=== PATIENT | female | born 1985 | race Caucasian/White ===

== ENCOUNTER 2016-08-10 07:17 | Emergency (ER) | payer MEDICARE, MEDICAID ==
--- NOTE | 2016-08-10 08:36 | EDM.PDOC ---
ED HPI GENERAL MEDICAL PROBLEM - General Chief Complaint: Abdominal Pain Stated Complaint: PAIN IN MIDDLE OF CHEST Time Seen by Provider: 08/10/16 08:27 Source of Information: Reports: Patient, RN Notes Reviewed History Limitations: Reports: No Limitations - History of Present Illness INITIAL COMMENTS - FREE TEXT/NARRATIVE: 31-year-old female presents emergency department day complaint of epigastric abdominal pain, she states the pain came on early this morning is constant nature pain goes through to her back she has no nausea vomiting no shortness of breath or chest pain she had pain similar to this a while back after she ate greasy food denies any flatus Epigastric Pain Score (Numeric/FACES): 10 - Related Data Allergies Allergy/AdvReac Type Severity Reaction Status Date / Time ibuprofen Allergy Rash Verified 08/10/16 08:02 Penicillins Allergy Rash Verified 08/10/16 08:02 Home Meds: Home Meds Sertraline HCl 50 mg PO BEDTIME 06/05/15 [History] metFORMIN [Glucophage XR] 500 mg PO BIDMEALS 08/10/16 [History] Past Medical History HEENT History: Reports: Other (See Below) Other HEENT History: 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: Musculoskeletal History: Reports: Arthritis Neurological History: Reports: Concussion Psychiatric History: Reports: Depression Endocrine/Metabolic History: Reports: Diabetes, Type II, Obesity/BMI 30+ - Past Surgical History Female Surgical History: Reports: Hysterectomy, Tubal Ligation Social & Family History - Family History Family Medical History: Unobtainable - Tobacco Use Smoking Status *Q: Current Some Day Smoker Years of Tobacco use: 3 Packs/Tins Daily: 0.5 Second Hand Smoke Exposure: No - Caffeine Use Caffeine Use: Reports: None - Alcohol Use Days Per Week of Alcohol Use: 0 - Recreational Drug Use Recreational Drug Use: No ED ROS GENERAL - Review of Systems Review Of Systems: See Below Constitutional: Denies: Fever, Chills HEENT: Reports: No Symptoms Respiratory: Reports: No Symptoms Cardiovascular: Reports: No Symptoms GI/Abdominal: Reports: Abdominal Pain. Denies: Constipation, Diarrhea, Flatus, Nausea, Vomiting : Reports: No Symptoms Musculoskeletal: Reports: No Symptoms Skin: Reports: No Symptoms Neurological: Reports: No Symptoms ED EXAM, GI/ABD - Physical Exam Exam: See Below Text/Narrative:: General: Obese female, in mild discomfort secondary to pain, alert and oriented x3 HEENT: head is atraumatic normocephalic, eyes pupils equal round reactive to light, sclera clear no conjunctivitis appreciated. Ears tympanic membranes clear and trejo landmarks and light reflex are present bilaterally canals are clear. Nose no septal deviation, nares are clear, no blood present. Mouth mucosa is moist and pink no erythema or exudate noted in soft palate, tongue is midline uvula is midline, dentition is intact. Neck: Supple no thyromegaly no tracheal deviation. Nodes: Cervical nodes subclavicular nodes nontender no palpable lymphadenopathy noted. Lungs: clear to auscultation bilaterally with symmetrical respirations, no adventitious noise appreciated. CV: Regular rate and rhythm S1 and S2 appreciated no murmurs rubs or gallops noted. Abdomen: Soft, tender epigastric region, obese difficult to assess, no palpable masses or organomegaly appreciated, no distention no guarding bowel sounds are present, . Neuro: Cranial nerves II through XII grossly intact Skin: Warm and dry, intact Extremities: No lower extremity edema appreciated, pedal pulse is +2. Course - Vital Signs Last Recorded V/S: Last Vital Signs Temp 98.3 F 08/10/16 09:54 Pulse 72 08/10/16 09:54 Resp 14 08/10/16 09:54 BP 154/103 H 08/10/16 09:54 Pulse Ox 96 08/10/16 09:54 - Orders/Labs/Meds Orders: Active Orders 24 hr Category Date Time Status Abdomen Pelvis w Cont [CT] Urgent Exams 08/10/16 08:32 Taken Iopamidol [Isovue-300 (61%)] Med 08/10/16 09:02 Active 150 ml IV . DIRECTED PRN Sodium Chloride 0.9% [Normal Saline] 85 ml Med 08/10/16 09:15 Active IV ASDIRECTED Sodium Chloride 0.9% [Saline Flush] Med 08/10/16 09:02 Active 10 ml FLUSH ONETIME PRN Medication Orders Sodium Chloride (Normal Saline) 85 mls @ 3.5 mls/sec IV ASDIRECTED LISA Stop: 08/10/16 23:00 Last Admin: 08/10/16 09:18 Dose: 3 mls/sec Iopamidol (Isovue-300 (61%)) 150 ml IV . DIRECTED PRN PRN Reason: RADIOLOGY EXAM Stop: 08/11/16 09:03 Last Admin: 08/10/16 09:18 Dose: 150 ml Sodium Chloride (Saline Flush) 10 ml FLUSH ONETIME PRN PRN Reason: per radiology protocol Stop: 08/10/16 23:00 Last Admin: 08/10/16 09:15 Dose: 10 ml Labs: Laboratory Tests 08/10/16 08/10/16 08/10/16 Range/Units 08:44 08:44 08:51 WBC 9.7 (4.5-11.0) K/uL RBC 4.68 (3.30-5.50) M/uL Hgb 13.5 (12.0-15.0) g/dL Hct 39.6 (36.0-48.0) % MCV 85 (80-98) fL MCH 29 (27-31) pg MCHC 34 (32-36) % Plt Count 333 (150-400) K/uL Neut % (Auto) 63 (36-66) % Lymph % (Auto) 23 L (24-44) % Ida % (Auto) 8 H (2-6) % Eos % (Auto) 6 H (2-4) % Baso % (Auto) 1 (0-1) % Sodium 139 L (140-148) mmol/L Potassium 4.2 (3.6-5.2) mmol/L Chloride 105 (100-108) mmol/L Carbon Dioxide 27 (21-32) mmol/L Anion Gap 11.2 (5.0-14.0) mmol/L BUN 10 (7-18) mg/dL Creatinine 0.7 (0.6-1.0) mg/dL Est Cr Clr Drug Dosing 108.01 mL/min Estimated GFR (MDRD) > 60 (>60) Glucose 99 (74-106) mg/dL Calcium 8.6 (8.5-10.1) mg/dL Total Bilirubin 0.2 (0.2-1.0) mg/dL AST 12 L (15-37) U/L ALT 15 (12-78) U/L Alkaline Phosphatase 98 (46-116) U/L Troponin I < 0.017 (0.000-0.056) ng/mL Total Protein 7.4 (6.4-8.2) g/dL Albumin 3.3 L (3.4-5.0) g/dL Globulin 4.1 H (2.3-3.5) g/dL Albumin/Globulin Ratio 0.8 L (1.2-2.2) Lipase 118 (73-393) U/L Urine Color Urine Appearance Urine pH (4.5-8.0) Ur Specific Cleves (1.008-1.030) Urine Protein (NEGATIVE) mg/dL Urine Glucose (UA) (NEGATIVE) mg/dL Urine Ketones (NEGATIVE) mg/dL Urine Occult Blood (NEGATIVE) Urine Nitrite (NEGATIVE) Urine Bilirubin (NEGATIVE) Urine Urobilinogen (NORMAL) mg/dL Ur Leukocyte Esterase (NEGATIVE) Urine RBC (0-5) Urine WBC (0-5) Ur Epithelial Cells Amorphous Sediment Urine Bacteria Urine Mucus Urine HCG, Qual Negative 08/10/16 Range/Units 08:51 WBC (4.5-11.0) K/uL RBC (3.30-5.50) M/uL Hgb (12.0-15.0) g/dL Hct (36.0-48.0) % MCV (80-98) fL MCH (27-31) pg MCHC (32-36) % Plt Count (150-400) K/uL Neut % (Auto) (36-66) % Lymph % (Auto) (24-44) % Ida % (Auto) (2-6) % Eos % (Auto) (2-4) % Baso % (Auto) (0-1) % Sodium (140-148) mmol/L Potassium (3.6-5.2) mmol/L Chloride (100-108) mmol/L Carbon Dioxide (21-32) mmol/L Anion Gap (5.0-14.0) mmol/L BUN (7-18) mg/dL Creatinine (0.6-1.0) mg/dL Est Cr Clr Drug Dosing mL/min Estimated GFR (MDRD) (>60) Glucose (74-106) mg/dL Calcium (8.5-10.1) mg/dL Total Bilirubin (0.2-1.0) mg/dL AST (15-37) U/L ALT (12-78) U/L Alkaline Phosphatase (46-116) U/L Troponin I (0.000-0.056) ng/mL Total Protein (6.4-8.2) g/dL Albumin (3.4-5.0) g/dL Globulin (2.3-3.5) g/dL Albumin/Globulin Ratio (1.2-2.2) Lipase (73-393) U/L Urine Color Yellow Urine Appearance Slightly cloudy Urine pH 5.0 (4.5-8.0) Ur Specific Cleves 1.025 (1.008-1.030) Urine Protein Negative (NEGATIVE) mg/dL Urine Glucose (UA) Normal (NEGATIVE) mg/dL Urine Ketones Negative (NEGATIVE) mg/dL Urine Occult Blood Negative (NEGATIVE) Urine Nitrite Negative (NEGATIVE) Urine Bilirubin Negative (NEGATIVE) Urine Urobilinogen Normal (NORMAL) mg/dL Ur Leukocyte Esterase Negative (NEGATIVE) Urine RBC 0-5 (0-5) Urine WBC 0-5 (0-5) Ur Epithelial Cells Many Amorphous Sediment Rare Urine Bacteria Few Urine Mucus Few Urine HCG, Qual Meds: Medications Generic Name Dose Route Start Last Admin Trade Name Freq PRN Reason Stop Dose Admin Sodium Chloride 85 mls @ 3.5 mls/sec 08/10/16 09:15 08/10/16 09:18 Normal Saline IV 08/10/16 23:00 3 mls/sec ASDIRECTED LISA Administration Iopamidol 150 ml 08/10/16 09:02 08/10/16 09:18 Isovue-300 (61%) IV 08/11/16 09:03 150 ml . DIRECTED PRN Administration RADIOLOGY EXAM Sodium Chloride 10 ml 08/10/16 09:02 08/10/16 09:15 Saline Flush FLUSH 08/10/16 23:00 10 ml ONETIME PRN Administration per radiology protocol Departure - Departure Time of Disposition: 09:59 Disposition: Home, Self-Care 01 Condition: Good Clinical Impression: Cholelithiasis Qualifiers: Cholelithiasis location: gallbladder Cholecystitis presence: without cholecystitis Biliary obstruction: without biliary obstruction Qualified Code(s) : K80.20 - Calculus of gallbladder without cholecystitis without obstruction - Discharge Information Forms: ED Department Discharge Additional Instructions: Use hydrocodone as needed for pain control, please follow-up with Dr. Dion Ellis general surgery tomorrow morning at 10 AM at the clinic - My Orders Last 24 Hours: My Active Orders 08/10/16 08:32 Abdomen Pelvis w Cont [CT] Urgent 08/10/16 09:02 Iopamidol [Isovue-300 (61%)] 150 ml IV . DIRECTED PRN Sodium Chloride 0.9% [Saline Flush] 10 ml FLUSH ONETIME PRN 08/10/16 09:15 Sodium Chloride 0.9% [Normal Saline] 85 ml IV ASDIRECTED - Assessment/Plan Last 24 Hours: My Active Orders 08/10/16 08:32 Abdomen Pelvis w Cont [CT] Urgent 08/10/16 09:02 Iopamidol [Isovue-300 (61%)] 150 ml IV . DIRECTED PRN Sodium Chloride 0.9% [Saline Flush] 10 ml FLUSH ONETIME PRN 08/10/16 09:15 Sodium Chloride 0.9% [Normal Saline] 85 ml IV ASDIRECTED Plan: Assessment Acuity = acute Site and laterality = cholelithiasis comp. Patient with morbid obesity Etiology = unclear etiology Manifestations = abdominal pain Location of injury = Home Lab values = CBC normal sodium low at 139 consistent hyponatremia albumin low at 2.[address] scan shows sludge and stones in the gallbladder Plan I did review the case with Dr. Dion Ellis general surgery he will see her tomorrow morning at 10 AM to discuss the possibility of cholecystectomy, she is provided 10 hydrocodone for pain control Patient was in agreement with the plan all questions were answered, they were instructed to return to the emergency department or call for worsening symptoms. This note was dictated using [employer] voice recognition software please call with any questions.
[2016-08-10] MEDS ORDERED: Iopamidol 612 MG/ML 150 ML Bottle IV PRN (09:02)
[2016-08-10] MEDS ORDERED: Sodium Chloride 0.9% 10 ML Syringe FLUSH PRN (09:02)
[2016-08-10 09:55] VITALS: BP 154/103
== END 2016-08-10 10:12 | disposition home or self-care (01) ==
LOC: JP.ED 07:17
DX: K80.20 Calculus of gallbladder without cholecystitis without obstruction (principal); Z90.710 Acquired absence of both cervix and uterus; N83.02 Follicular cyst of left ovary; E11.9 Type 2 diabetes mellitus without complications; Z79.84 Long term (current) use of oral hypoglycemic drugs; M19.90 Unspecified osteoarthritis, unspecified site; E66.9 Obesity, unspecified; Z98.51 Tubal ligation status; F17.210 Nicotine dependence, cigarettes, uncomplicated; Z79.899 Other long term (current) drug therapy; Z88.6 Allergy status to analgesic agent; Z88.0 Allergy status to penicillin
CPT/HCPCS: 36415; 74177; 80053; 81001; 81025; 83690; 84484; 85025; J7030; J7050; 99283; 99284-25

== ENCOUNTER 2016-08-12 07:10 | Day surgery (SDC) | payer MEDICARE, MEDICAID ==
[~2016-08-12 07:10] MED LIST: Bupivacaine 0.5%/EPINEPHrine 1:200,000 50 ML MDV ONE
[2016-08-12] MEDS: Dextrose 5%-Lactated Ringers 1,000 ML IV SCH ×2 (08:12→15:09)
[2016-08-12] MEDS ORDERED: Propofol 200 MG/20 ML SDV ONE (09:38)
[2016-08-12] MEDS ORDERED: Ondansetron 4 MG/2 ML SDV ONE (09:38)
[2016-08-12] MEDS ORDERED: Succinylcholine/Normal Saline 200 MG/10 ML Syringe ONE (09:38)
[2016-08-12] MEDS ORDERED: Dexamethasone 4 MG/ML SDV ONE (09:38)
[2016-08-12] MEDS ORDERED: Rocuronium 50 MG/5 ML Vial ONE (09:38)
[2016-08-12] MEDS ORDERED: Neostigmine Methylsulfate 1 MG/ML 5 ML Syringe ONE (09:38)
[2016-08-12] MEDS ORDERED: fentaNYL 250 MCG/5 ML SDV ONE ×2 (09:39→11:05)
[2016-08-12] MEDS ORDERED: HYDROmorphone/Normal Saline 15 MG/30 ML PCA IV PRN (10:07)
[2016-08-12] MEDS ORDERED: Naloxone 0.4 MG/ML SDV IV PRN (10:11)
[2016-08-12] MEDS ORDERED: Lactated Ringers 1,000 ML ONE (11:03)
[2016-08-12] MEDS: cefOXitin 2 GM in Sodium Chloride 0.9% 50 ML IV ONE ×2 (11:13→15:56)
[2016-08-12] MEDS ORDERED: hydrOXYzine HCl 50 MG/ML SDV IM ONE (12:21)
[2016-08-12] MEDS ORDERED: Insulin Aspart 100 Units/ML 3 ML Pen SUBCUT PRN (13:14)
[2016-08-12] MEDS ORDERED: Glucose Gel 15 GM in 37.5 GM Tube PO PRN (13:14)
[2016-08-12] MEDS ORDERED: 50% Dextrose in Water 50 ML Syringe IVPUSH PRN (13:14)
[2016-08-12] MEDS ORDERED: Glucagon,Human Recombinant 1 MG Vial IM PRN (13:14)
[2016-08-12] MEDS ORDERED: Ondansetron 4 MG/2 ML SDV IVPUSH PRN (14:00)
[2016-08-12] MEDS ORDERED: Pantoprazole 40 MG Vial IVPUSH SCH (15:00)
[2016-08-12] MEDS: cefOXitin 2 GM in Sodium Chloride 0.9% 50 ML IV SCH ×2 (17:59→22:28)
[2016-08-12] MEDS: metFORMIN 500 MG Tab PO SCH (17:59)
[2016-08-12] MEDS: Acetaminophen/HYDROcodone 325-5 MG Tab PO PRN (18:04)
[2016-08-12] MEDS ORDERED: Sertraline 50 MG Tab PO SCH (21:00)
[2016-08-13] MEDS ORDERED: Benzocaine/Cetylpyridinium/Menthol Lozenge MUCMEM PRN (02:13)
[2016-08-13] MEDS: Dextrose 5%-Lactated Ringers 1,000 ML IV SCH (02:26)
[2016-08-13 02:49] VITALS: BP 134/71
[2016-08-13] MEDS: cefOXitin 2 GM in Sodium Chloride 0.9% 50 ML IV SCH (04:22)
[2016-08-13] MEDS: metFORMIN 500 MG Tab PO SCH (07:23)
--- NOTE | 2016-08-13 08:51 | DISCH ---
ADMISSION DIAGNOSES: Acute cholecystitis, cholelithiasis, degenerative arthritis of left ankle, morbid obesity, and depression. DISCHARGE DIAGNOSES: Status post laparoscopic cholecystectomy for chronic cholecystitis and cholelithiasis. HISTORY: Susan Ramirez is a 31-year-old female with right upper quadrant pain. After preoperative evaluation and discussion of possible risks and possible complications, she wished to proceed with surgical procedure. HOSPITAL COURSE: Susan had her surgery on 08/12/2016. She had no operative complications, and she was able to be discharged on 08/13/2016. PHYSICAL EXAMINATION: GENERAL: Susan Ramirez is a 31-year-old female. VITAL SIGNS: Height is 5 feet 6 inches. Weight is 308 pounds. TPR is 98.3, 63, 18, and blood pressure is 134/71. HEENT: Negative. NECK: Supple. HEART: Regular rate and rhythm. LUNGS: Clear. ABDOMEN: Dressings dry and intact. JACLYN drain is intact. This will be removed prior to discharge. Abdominal binder has been on. EXTREMITIES: Without peripheral edema. DISPOSITION: Discharged to home. CONDITION: Stable and improving. FOLLOWUP: Followup appointment with Soraya Jara PA-C, on 08/19/2016 at 10 a.m. DISCHARGE MEDICATIONS: Home medications are [place] 5/325 mg 1 to 2 every 4 hours p.r.n. pain, #50. She is to resume her home medications. DISCHARGE DIET: Usual diet as tolerated. Drink 8 to 10 glasses of water a day. ACTIVITY: Walk short distances 6 times a day. No lifting greater than 10 pounds. Driving, do not drive while on pain medication. Shower/bathing, may shower. Keep operative site clean and dry. DISCHARGE INSTRUCTIONS: Notify provider if any fever, increased pain, nausea, or vomiting. Special instruction; wear abdominal binder for 2 weeks and then as tolerated. Use incentive spirometer 10 times every hour while awake for 2 weeks.
[2016-08-13] MEDS: Acetaminophen/HYDROcodone 325-5 MG Tab PO PRN (08:55)
[2016-08-13] MEDS ORDERED: Pneumococcal Polyvalent-23 Vaccine 0.5 ML SDV IM ONE (09:00)
--- NOTE | 2016-08-18 19:20 | OR ---
DATE OF PROCEDURE: 08/12/2016 PREOPERATIVE DIAGNOSIS: Chronic cholecystitis and cholelithiasis. POSTOPERATIVE DIAGNOSIS: Chronic cholecystitis and cholelithiasis. OPERATIVE PROCEDURE: Laparoscopic cholecystectomy ([id number]). ANESTHESIA: General. HOUSE FURNISHINGS SUPERVISOR: Soraya Jara PA-C and KAYLEY Godoy student. INDICATIONS FOR PROCEDURE: This is a 31-year-old presenting with symptomatic cholelithiasis. Plan is to proceed with laparoscopic cholecystectomy. Potential risks including bleeding, infection, injury to underlying viscera, such as common bile duct, potential migration of stones into the common bile duct during the course of the procedure, and as well as possible persistent symptoms post cholecystectomy were all gone over and the patient wishes to proceed. DESCRIPTION OF PROCEDURE: The patient was taken to the operating room. After general endotracheal anesthesia was induced, the abdomen was prepped and draped. Just to the right of the umbilicus, a transverse incision was made. The peritoneal cavity was entered under direct vision with an Optiview trocar and inflated to 15 mmHg pressure of CO2. Laparoscope was reinserted. No underlying trocar insertion site injuries were seen. Following this, a 12 mm epigastric trocar was placed along with a 5 mm right abdominal trocar and the abdomen examined. The patient noted to have a distended, somewhat trejo appearing gallbladder consistent with chronic cholecystitis. There was some omental adhesions present. These were initially taken down with Harmonic scalpel. Dissection was then continued with the Harmonic scalpel down the gallbladder neck and cystic duct junction. Once that area was well delineated as was the adjacent cystic artery, both structures were clipped 3 times proximally and once distally and divided. The gallbladder was then dissected off the gallbladder bed using Harmonic scalpel and delivered through the upper midline port. Examination of the gallbladder showed multiple small yellow gallstones. The area of dissection was inspected. No bleeding or bile leaks were seen. A Lukasz-Rader drain was taken out through the right lateral trocar site, placed in the area of the gallbladder bed. The trocars were then sequentially removed. The fascia at the 12-mm site was closed with 0 Vicryl stitch and the skin at each incision with a 4-0 Vicryl skin stitch. Dressing was applied. The patient was taken to the recovery room in satisfactory condition. Physician residential real estate assistant Soraya Jara played an essential role in assisting in this case, helping to position the patient, retract structures in as indicated above as well as suturing and cutting sutures when indicated. Her presence improved patient's safety and decreased operative time. Dion Ellis MD /[id number]
== END 2016-08-13 11:15 | disposition home or self-care (01) ==
LOC: JP.SDS 07:10 → JP.2SS 11:45 → JP.SDS 08-13 11:15
PROVIDERS: ATTEND Surgery
DX: K80.10 Calculus of gallbladder with chronic cholecystitis without obstruction (principal); E11.9 Type 2 diabetes mellitus without complications; Z79.84 Long term (current) use of oral hypoglycemic drugs; Z79.899 Other long term (current) drug therapy; E66.9 Obesity, unspecified; Z68.30 Body mass index [BMI] 30.0-30.9, adult; Z90.710 Acquired absence of both cervix and uterus; Z98.51 Tubal ligation status; Z88.0 Allergy status to penicillin; Z88.8 Allergy status to other drugs, medicaments and biological substances; F17.210 Nicotine dependence, cigarettes, uncomplicated; Z23 Encounter for immunization
CPT/HCPCS: 36415; 47562; 82247; 82962; 84075; 85027; 88304; 94762; A9270; C9113; G0009; J0694; J1100; J1170; J2405; J2704; J3010; J3410; J7042; J7050; J7120; 90732

== ENCOUNTER 2018-04-27 21:39 | Emergency (ER) | payer BC, MEDICARE ==
[2018-04-27 22:11] VITALS: BP 148/103
[2018-04-27] MEDS ORDERED: Ketorolac 60 MG/2 ML SDV IM ONE (23:01)
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
--- NOTE | 2018-04-27 23:27 | CRLCR ---
INDICATION: Left shoulder pain TECHNIQUE: Shoulder radiograph 3 views left COMPARISON: None FINDINGS: Bone: No acute fractures or aggressive bone lesions are identified. Joint: The glenohumeral is unremarkable. The acromioclavicular joint is unremarkable. Soft tissue: Unremarkable. The visualized hemithorax is unremarkable in appearance. No radiopaque foreign bodies are seen. IMPRESSION: 1. No acute osseous injuries or abnormalities are noted. Dictated by: Aditya Day MD @ 04/27/2018 23:25:21 (Electronically Signed)
[2018-04-27] MEDS ORDERED: Triamcinolone Acetonide 40 MG/ML 1 ML MDV INJECT ONE (23:28)
== END 2018-04-27 23:47 | disposition home or self-care (01) ==
LOC: JP.ED 21:39
DX: M75.52 Bursitis of left shoulder (principal)
CPT/HCPCS: 73030; 96372; 99283; J1885; J3301

== ENCOUNTER 2018-07-13 20:02 | Emergency (ER) | payer BC, MEDICARE ==
[2018-07-13 20:23] VITALS: BP 124/78
[2018-07-13] MEDS ORDERED: cefTRIAXone 2 GM in Sodium Chloride 0.9% 50 ML IV ONE (20:49)
[2018-07-13] MEDS ORDERED: Sodium Chloride 0.9% 1,000 ML IV SCH (21:00)
--- NOTE | 2018-07-13 21:30 | CRLCR ---
Indication: Shortness of breath with fever. Technique: PA and lateral views the chest were obtained. Comparison: None Findings: The heart is normal in size. An opacity is identified in the right upper lobe anteriorly. A repeat study is recommended to ensure complete resolution. No pleural effusion or pneumothorax is identified. The left lung is clear. Impression: Opacity identified in the right upper lobe. A repeat study is recommended to ensure complete resolution. Dictated by Reina Stephenson MD @ Jul 13 2018 9:27PM Signed by Dr. Reina Stephenson @ Jul 13 2018 9:28PM
[2018-07-13] MEDS ORDERED: Acetaminophen/HYDROcodone 325-5 MG Tab PO ONE (22:14)
[2018-07-13] MEDS ORDERED: Acetaminophen 325 MG Tab PO ONE (22:14)
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
== END 2018-07-13 22:56 | disposition home or self-care (01) ==
LOC: JP.ED 20:02
DX: J18.1 Lobar pneumonia, unspecified organism (principal); F32.9 Major depressive disorder, single episode, unspecified; E11.9 Type 2 diabetes mellitus without complications; F17.210 Nicotine dependence, cigarettes, uncomplicated; Z88.0 Allergy status to penicillin; Z79.899 Other long term (current) drug therapy
CPT/HCPCS: 36415; 71046; 80053; 81001; 81025; 82150; 83605; 85025; 87040; 87081; 87430; 96365; 99285; A9270; G0480; J0696; J7030; J7050

== ENCOUNTER 2018-07-15 23:40 | Emergency (ER) | payer BC, MEDICARE ==
[2018-07-16 00:23] VITALS: BP 157/96
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
== END 2018-07-16 00:58 | disposition home or self-care (01) ==
LOC: JP.ED 23:40
DX: J18.1 Lobar pneumonia, unspecified organism (principal); G44.209 Tension-type headache, unspecified, not intractable; M19.90 Unspecified osteoarthritis, unspecified site; E66.9 Obesity, unspecified; F32.9 Major depressive disorder, single episode, unspecified; F17.210 Nicotine dependence, cigarettes, uncomplicated; Z98.890 Other specified postprocedural states; Z90.49 Acquired absence of other specified parts of digestive tract; Z90.710 Acquired absence of both cervix and uterus; Z98.51 Tubal ligation status; Z88.0 Allergy status to penicillin; Z88.6 Allergy status to analgesic agent; Z79.899 Other long term (current) drug therapy
CPT/HCPCS: 99282

== ENCOUNTER 2019-02-25 17:30 | Emergency (ER) | payer BC, MEDICARE ==
[2019-02-25 18:09] VITALS: BP 144/96; PULSE 96
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
--- NOTE | 2019-02-25 19:25 | CRLCR ---
INDICATION: Pain after fall onto the right shoulder. COMPARISON: None available. TECHNIQUE: The right shoulder was examined with AP internal and external rotation and outlet views for a total of three views. FINDINGS: The osseous structures are in anatomic alignment without fracture or dislocation. There is anatomic alignment of the humeral head and glenoid. The visualized chest is clear. IMPRESSION: Normal right shoulder. Dictated by Flakito Nation MD @ Feb 25 2019 7:23PM Signed by Dr. Flakito Nation @ Feb 25 2019 7:24PM
== END 2019-02-25 19:38 | disposition home or self-care (01) ==
LOC: JP.ED 17:30
DX: S46.911A Strain of unspecified muscle, fascia and tendon at shoulder and upper arm level, right arm, initial encounter (principal); F32.9 Major depressive disorder, single episode, unspecified; F17.210 Nicotine dependence, cigarettes, uncomplicated; E66.9 Obesity, unspecified; Z68.42 Body mass index [BMI] 45.0-49.9, adult; Z88.6 Allergy status to analgesic agent; Z88.0 Allergy status to penicillin; W01.0XXA Fall on same level from slipping, tripping and stumbling without subsequent striking against object, initial encounter; Y92.34 Swimming pool (public) as the place of occurrence of the external cause
CPT/HCPCS: 73030-RT; 99283-25

== ENCOUNTER 2020-09-30 17:06 | Emergency (ER) | payer BC, MEDICARE ==
[2020-09-30 18:02] VITALS: BP 132/76; PULSE 85
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
== END 2020-09-30 19:27 | disposition home or self-care (01) ==
LOC: JP.ED 17:06
DX: T63.441A Toxic effect of venom of bees, accidental (unintentional), initial encounter (principal); E66.9 Obesity, unspecified; Z68.42 Body mass index [BMI] 45.0-49.9, adult; Z88.0 Allergy status to penicillin; Z88.6 Allergy status to analgesic agent
CPT/HCPCS: 99282

== ENCOUNTER 2021-05-20 21:14 | Emergency (ER) | payer BC, MEDICARE, MEDICAID ==
[2021-05-20 21:28] VITALS: BP 165/109; PULSE 102
[2021-05-20] MEDS ORDERED: Acetaminophen 500 MG Tab PO ONE (21:37)
[2021-05-20] MEDS ORDERED: diphenhydrAMINE 25 MG Cap PO ONE (21:38)
[2021-05-20 23:01] LABS: CORONAVIRUS COVID-19 NAA NEGATIVE (NEGATIVE)
== END 2021-05-20 22:46 | disposition home or self-care (01) ==
LOC: JP.ED 21:14
DX: R51.9 Headache, unspecified (principal); J06.9 Acute upper respiratory infection, unspecified; E66.9 Obesity, unspecified; Z68.43 Body mass index [BMI] 50.0-59.9, adult; Z88.0 Allergy status to penicillin; Z88.8 Allergy status to other drugs, medicaments and biological substances; Z20.822 Contact with and (suspected) exposure to COVID-19
CPT/HCPCS: 0241U; 99282; 99283; A9270-GY

== ENCOUNTER 2021-09-07 21:59 | Emergency (ER) | payer BC, MEDICARE, MEDICAID ==
[2021-09-07 22:42] VITALS: BP 130/90; PULSE 95
[2021-09-07] MEDS ORDERED: diphenhydrAMINE 25 MG Cap PO ONE (22:53)
== END 2021-09-07 23:06 | disposition home or self-care (01) ==
LOC: JP.ED 21:59
DX: L50.9 Urticaria, unspecified (principal); Z88.0 Allergy status to penicillin
CPT/HCPCS: 99282; A9270

== ENCOUNTER 2021-09-18 23:20 | Emergency (ER) | payer BC, MEDICARE, MEDICAID ==
[2021-09-18] MEDS ORDERED: hydrOXYzine HCl 25 MG Tab PO ONE (23:43)
[2021-09-18 23:52] VITALS: BP 126/72; PULSE 97
== END 2021-09-18 23:58 | disposition home or self-care (01) ==
LOC: JP.ED 23:20
DX: L56.8 Other specified acute skin changes due to ultraviolet radiation (principal); E66.9 Obesity, unspecified; Z68.42 Body mass index [BMI] 45.0-49.9, adult; Z88.0 Allergy status to penicillin; Z88.8 Allergy status to other drugs, medicaments and biological substances
CPT/HCPCS: 99282; A9270

== ENCOUNTER 2023-05-02 05:53 | Emergency (ER) | payer BC, MEDICAID ==
[2023-05-02] MEDS: Ketorolac 30 MG/ML SDV IM ONE (07:22)
[2023-05-02 07:31] VITALS: BP 147/74; PULSE 79
[2023-05-02] MEDS: Acetaminophen 500 MG Tab PO ONE (08:07)
== END 2023-05-02 09:55 | disposition home or self-care (01) ==
LOC: JP.ED 05:53
DX: S86.912A Strain of unspecified muscle(s) and tendon(s) at lower leg level, left leg, initial encounter (principal); F17.210 Nicotine dependence, cigarettes, uncomplicated; E66.9 Obesity, unspecified; Z88.6 Allergy status to analgesic agent; Z88.0 Allergy status to penicillin; Z79.899 Other long term (current) drug therapy; Z86.19 Personal history of other infectious and parasitic diseases; Z90.49 Acquired absence of other specified parts of digestive tract; Z90.710 Acquired absence of both cervix and uterus; Z68.41 Body mass index [BMI] 40.0-44.9, adult; W00.0XXA Fall on same level due to ice and snow, initial encounter
CPT/HCPCS: 96372; 99283; A9270; J1885

== ENCOUNTER 2024-07-29 21:55 | Emergency (ER) | payer BC ==
[2024-07-29 22:22] VITALS: BP 131/78; PULSE 75
[2024-07-29] MEDS: Lidocaine/Epineph/Tetracaine 3 ML Syringe TOP ONE (22:56)
[2024-07-29] MEDS: Diphtheria,Pertussis(Acell),Tetanus Vaccine 0.5 ML Syringe IM ONE (23:19)
[2024-07-29] MEDS: Bacitracin Oint 1 GM U/D Packet TOP ONE (23:55)
== END 2024-07-30 | disposition home or self-care (01) ==
LOC: JP.ED 21:55
DX: S61.211A Laceration without foreign body of left index finger without damage to nail, initial encounter (principal); Z88.0 Allergy status to penicillin; Z88.8 Allergy status to other drugs, medicaments and biological substances; Z90.49 Acquired absence of other specified parts of digestive tract; Z23 Encounter for immunization; Z87.891 Personal history of nicotine dependence; W26.8XXA Contact with other sharp object(s), not elsewhere classified, initial encounter; Y93.89 Activity, other specified
CPT/HCPCS: 12001; 90471; 90715; 99282; A9270